=== PATIENT | male | born 1955 | race Caucasian/White ===

== ENCOUNTER 2021-09-18 12:01 | Emergency (ER) | payer MEDICARE, MEDICAID ==
[~2021-09-18] VITALS: Ht 162 cm; Wt 61.2 kg
[~2021-09-18 12:01] MED LIST: DILANTIN; PHEN100C11; PHN100C
[2021-09-18 12:16] VITALS: BP 189/123
[2021-09-18] MEDS ORDERED: KETOROLAC 30 MG/ML VIAL IV ONE (12:30)
--- NOTE | 2021-09-18 12:57 | Diagnostic Imaging Report ---
INDICATION: Right-sided rib pain, fall. TIME OF EXAM: 12:44 p.m. FINDINGS: No displaced rib fractures identified. No parenchymal contusion, effusion or pneumothorax is detected. IMPRESSION: No displaced rib fractures detected. Dictated by: Dictated on workstation # [id number]
--- NOTE | 2021-09-18 13:35 | ED General ---
General Chief Complaint: Chest Wall Stated Complaint: FALL/R RIB PAIN Nursing Triage Note: PT PRESENTS TO ED VIA POV FROM HOME WITH COMPLAITNS OF R SIDED RIB PAIN SINCE SLIPPING ON THE ICE ON FRIDAY. History of Present Illness Date Seen by Provider: Sep 18, 2021 Time Seen by Provider: 12:30 Initial Comments 66-year-old male with no significant PMH, is here with complaints of right sided rib pain. Patient reports pain began Friday night after he had a fall on ice, with worsening pain. Pain is made worse upon movement and deep breaths. Patient also has a overlying rash that has been present for 2 weeks and is painful to light touch. Patient denies shortness of breath, chest pain, LOC, blurry vision, abdominal pain, fever. Patient has been taking ibuprofen for pain at home without any significant relief. Patient is concerned for rib fracture. Patient is also a known pedophile. Allergies and Home Medications Allergies Coded Allergies: Penicillins (Unverified Allergy, Mild, RASH, 02/05/09) penicillin V (Unverified Allergy, Mild, 12/02/08) Patient Home Medication List Home Medication List Reviewed: Yes Phenytoin Sodium Extended (Phenytoin Sodium Extended) 100 Mg Capsule, (Reported) Entered as Reported by: RADHA SAUCEDO on 03/29/16 1350 Review of Systems Review of Systems Constitutional: no symptoms reported EENTM: no symptoms reported Respiratory: no symptoms reported Cardiovascular: no symptoms reported Gastrointestinal: no symptoms reported Genitourinary: no symptoms reported Musculoskeletal: muscle pain, other (right sided rib pain) Skin: change in color, rash Psychiatric/Neurological: No Symptoms Reported Hematologic/Lymphatic: No Symptoms Reported Immunological/Allergic: no symptoms reported All Other Systems Reviewed Negative Unless Noted: Yes Past Orpustq-Acaizl-Gzsewz Hx Patient Social History Tobacco Use?: Yes Tobacco type used: Cigarettes Smoking Status: Current Everyday Smoker Substance use?: No Alcohol Use?: No Pt feels they are or have been: No Past Medical History Surgery/Hospitalization HX: pmh: 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 Seizure Disorder Reproductive Disorders: No Physical Exam Vital Signs Vital Signs - First Documented 09/18/21 12:16 Temp 36.0 Pulse 70 Resp 20 B/P (MAP) 189/123 (145) Pulse Ox 95 Capillary Refill : Less Than 3 Seconds Height, Weight, BMI Height: 5'4" Weight: 135lbs. oz. [id number]; 23.00 BMI Method:Stated General Appearance: Mild Distress HEENT: PERRL/EOMI Neck: Full Range of Motion, Normal Inspection, Non Tender, Supple Respiratory: Lungs Clear, Normal Breath Sounds, No Accessory Muscle Use, No Respiratory Distress, Other (Right-sided rib tenderness overlying the fourth and fifth ribs over the mid axillary to anterior axillary line.) Cardiovascular: Regular Rate, Rhythm, No Edema, No Murmur, Normal Peripheral Pulses Gastrointestinal: Normal Bowel Sounds, No Organomegaly, No Pulsatile Mass, Non Tender, Soft Back: Normal Inspection, No CVA Tenderness, No Vertebral Tenderness Extremity: Normal Inspection, Normal Range of Motion, Non Tender Neurologic/Psychiatric: Alert, Oriented x3, No Motor/Sensory Deficits, quality assurance supervisor body II- XII Norm as Tested Skin: Rash (Patient has vesicular rash on the right side of his chest along the mid axillary line around the T3-T6 dermatome and then again also also has vesicular rash T8-T9 also at the mid axillary line. Rash does not cross midline. Rash is highly painful and sensitive to light touch. No apparent discharge seen from rash.) Progress/Results/Core Measures Suspected Sepsis Recent Fever Within 48 Hours: No SIRS Temperature: Pulse: 70 Respiratory Rate: 20 Blood Pressure 189 /123 Mean: 145 Results/Orders My Orders Orders - OVIDIO BOURNE MD Ribs/Unilateral With Chest (09/18/21 12:24) Ketorolac Injection (Toradol Injection) (09/18/21 12:30) Medications Given in ED Current Medications Medications Dose Ordered Sig/Be Route Start Time Stop Time Status Last Admin Dose Admin Ketorolac Tromethamine 15 mg ONCE ONCE IV 09/18/21 12:30 09/18/21 12:31 DC 09/18/21 12:38 15 MG Vital Signs/I&O 09/18/21 12:16 Temp 36.0 Pulse 70 Resp 20 B/P (MAP) 189/123 (145) Pulse Ox 95 Capillary Refill : Less Than 3 Seconds Blood Pressure Mean: 145 Progress Note : Progress Note 1. Herpes zoster: -Patient refused treatment for shingles. 2. Fall/contusion: -X-ray ribs and chest normal. -Advised naproxen [id number] twice a day with Tylenol every 4 hours and lidocaine patches. -Follow-up with PCP -Advised to return to ER if symptoms worsen or do not improve. Patient left prior to discharge instructions given- Pt expressed understanding. Diagnostic Imaging Diagonstic Imaging: Xray Plain Films/CT/US/NM/MRI: chest (No acute fractures. lung normal) Reviewed: Reviewed by Me Departure Impression Primary Impression: Fall Qualified Codes: W19.XXXA - Unspecified fall, initial encounter Additional Impressions: Contusion, chest wall Shingles Qualified Codes: B02.8 - Zoster with other complications Disposition: HOME, SELF-CARE Condition: Stable Departure-Patient Inst. Referrals: [facility] (PCP/Family) Primary Care Physician Patient Instructions: Minor Contusion ED, Shingles (DC) Add. Discharge Instructions: -Advised naproxen [id number] twice a day with Tylenol every 4 hours and lidocaine patches. -Follow-up with PCP -Advised to return to ER if symptoms worsen or do not improve. Patient left prior to discharge instructions given- All discharge instructions reviewed with patient . Voiced understanding. OVIDIO BOURNE MD Sep 18, 2021 13:35
== END 2021-09-18 13:45 | disposition left against medical advice (07) ==
LOC: EDUNIT# 12:01 → ER 12:03
DX: S20.211A Contusion of right front wall of thorax, initial encounter (principal); B02.9 Zoster without complications; G40.909 Epilepsy, unspecified, not intractable, without status epilepticus; F17.210 Nicotine dependence, cigarettes, uncomplicated; Z79.899 Other long term (current) drug therapy; W00.9XXA Unspecified fall due to ice and snow, initial encounter
CPT/HCPCS: 71101